=== PATIENT | male | born 1955 | race Caucasian/White ===

== ENCOUNTER 2017-09-12 14:05 | Inpatient (IN) | payer SELFPAY ==
[2017-09-12] VITALS (7 sets, daily range): BP systolic 124–161; BP diastolic 67–94; PULSE 85–99; RESP 20–22; TEMP 98–98.7; O2SAT 92–96
[~2017-09-12] VITALS: Ht 180.3 cm; Wt 122.7 kg
--- NOTE | 2017-09-12 14:17 | PD ---
Physical Exam Date Seen by Provider: Sep 12, 2017 Time Seen by Provider: 14:14 Narrative 61-year-old white male presents to emergency para complaints of dyspnea. He states that he's had a history of asthma as a child. He does use an albuterol inhaler. He's had increasing dyspnea on exertion, orthopnea over the last several months but much more so in the last few weeks. Patient states the symptoms were so severe today he could not continue to work and came into the ER for evaluation and treatment. Positive cough with clear sputum. No fever or chills. No nausea vomiting. Symptoms are moderate. Exacerbated by activity. Some relief with remaining still and using his inhaler. Vital signs reviewed. Pt. waiting for bed placement. Data Data Last Documented VS Vital Signs Date Time Temp Pulse Resp B/P (MAP) Pulse Ox O2 Delivery O2 Flow Rate FiO2 09/12/17 14:07 98.7 90 22 124/76 (92) 94 MDM Medical Record Reviewed: No Supervised Visit with ANNIE: No (A left-sided breather right sided breather) Toby Celeste Sep 12, 2017 14:17
[2017-09-12] MEDS ORDERED: methylPREDNISolone SOD SUCC 125 MG/2 ML VIAL IV PUSH ONE ×2 (14:30)
[2017-09-12] MEDS ORDERED: SODIUM CHLORIDE 0.9% FLUSH 10 ML FLUSH IVF PRN ×2 (14:30)
--- NOTE | 2017-09-12 14:46 | PD ---
HPI Chief Complaint: Respiratory Symptoms Time Seen by Provider: 14:23 Travel History International Travel<30 days: No Contact w/Intl Traveler<30days: No Traveled to known affect area: No History of Present Illness HPI 61-year-old male presents to the emergency room for evaluation of shortness of breath. He has had increasing shortness of breath over the past several months. States it was so severe today that he had to come to the ER. He has had shortness of breath with exertion and orthopnea. Patient reports recent weight gain. Denies chest pain, nausea, or vomiting. Denies history of heart or lung disease. Patient has not been to a primary care physician in a very long time and denies any diagnosis of COPD or CHF. He smokes one pack per day, down from 2. He had asthma as a child but denies any recent asthma exacerbation. He uses albuterol inhaler as needed. He is on aspirin but denies any other daily medications. PFSH Social History Tobacco Use: Yes Allergies-Medications (Allergen,Severity, Reaction): Coded Allergies: penicillin V (Verified Allergy, Unknown, 09/12/17) Review of Systems Except as stated in HPI: all other systems reviewed are Neg Physical Exam Narrative GENERAL: Well-developed, well-nourished male in no acute distress. Afebrile. Ambulatory. SKIN: Focused skin assessment warm/dry. HEAD: Atraumatic. Normocephalic. EYES: Pupils equal and round. No scleral icterus. No injection or drainage. NECK: Trachea midline. No JVD. CARDIOVASCULAR: Regular rate and rhythm. No murmur appreciated. RESPIRATORY: No accessory muscle use. Bilateral expiratory wheezing. Distant lung sounds. MUSCULOSKELETAL: No obvious deformities. No clubbing. No cyanosis. Bilateral 1 + pitting edema in lower extremities. NEUROLOGICAL: Awake and alert. No obvious cranial nerve deficits. Motor grossly within normal limits. Normal speech. PSYCHIATRIC: Appropriate mood and affect; insight and judgment normal. Data Data Last Documented VS Vital Signs Date Time Temp Pulse Resp B/P (MAP) Pulse Ox O2 Delivery O2 Flow Rate FiO2 09/12/17 16:02 96 22 161/94 (116) 96 Nasal Cannula 2.00 09/12/17 14:07 98.7 Orders Orders Complete Blood Count With Diff (09/12/17 14:29) Comprehensive Metabolic Panel (09/12/17 14:29) B-Type Natriuretic Peptide (09/12/17 14:29) Act Partial Throm Time (Ptt) (09/12/17 14:29) Prothrombin Time / Inr (Pt) (09/12/17 14:29) Ckmb (Isoenzyme) Profile (09/12/17 14:29) Troponin I (09/12/17 14:29) Iv Access Insert/Monitor (09/12/17 14:29) Electrocardiogram (09/12/17 14:29) Ecg Monitoring (09/12/17 14:29) Oximetry (09/12/17 14:29) Oxygen Administration (09/12/17 14:29) Chest, Pa & Lat (09/12/17 14:29) Sodium Chloride 0.9% Flush (Ns Flush) (09/12/17 14:30) Methylprednisolone So Succ Inj (Solumedr (09/12/17 14:30) Albuterol-Ipratropium Neb (Duoneb Neb) (09/12/17 14:30) Furosemide Inj (Lasix Inj) (09/12/17 15:00) Aspirin (Aspirin) (09/12/17 16:00) CKMB (09/12/17 14:59) CKMB% (09/12/17 14:59) Nitroglycerin 2% Oint (Nitroglycerin 2% (09/12/17 16:00) Morphine Inj (Morphine Inj) (09/12/17 16:00) Ondansetron Inj (Zofran Inj) (09/12/17 16:00) Place In Observation (09/12/17 ) Vital Signs (Adult) Q4H (09/12/17 16:33) Activity Oob With Assistance (09/12/17 16:33) Diet Regular Basic (09/12/17 Dinner) Sodium Chloride 0.9% Flush (Ns Flush) (09/12/17 16:45) Sodium Chloride 0.9% Flush (Ns Flush) (09/12/17 21:00) Acetaminophen (Tylenol) (09/12/17 16:45) Ondansetron Inj (Zofran Inj) (09/12/17 16:45) Basic Metabolic Panel (Bmp) (09/13/17 06:00) Complete Blood Count With Diff (09/13/17 06:00) Resp Oxygen Yunior C Titrat 1-4 L (09/12/17 ) Scd Bilateral/Knee High OFELIA.BID (09/12/17 16:33) Naloxone Inj (Narcan Inj) (09/12/17 16:45) Magnesium Hydroxide Liq (Milk Of Magnesi (09/12/17 16:45) Sennosides (Senokot) (09/12/17 16:45) Bisacodyl Supp (Dulcolax Supp) (09/12/17 16:45) Lactulose Liq (Lactulose Liq) (09/12/17 16:45) Albuterol-Ipratropium Neb (Duoneb Neb) (09/12/17 16:45) Admit Order (Ed Use Only) (09/12/17 ) Medicare Nurse / Telemetry OFELIA.Q8H (09/12/17 16:33) Vital Signs (Adult) Q4H (09/12/17 16:33) Diet Heart Healthy (09/12/17 Dinner) Activity Oob With Assistance (09/12/17 16:33) Notify Dr: Other (09/12/17 16:33) Labs Laboratory Tests Test 09/12/17 14:59 White Blood Count 9.2 TH/MM3 Red Blood Count 5.29 MIL/MM3 Hemoglobin 16.3 GM/DL Hematocrit 47.7 % Mean Corpuscular Volume 90.1 FL Mean Corpuscular Hemoglobin 30.8 PG Mean Corpuscular Hemoglobin Concent 34.1 % Red Cell Distribution Width 13.8 % Platelet Count 235 TH/MM3 Mean Platelet Volume 7.6 FL Neutrophils (%) (Auto) 62.9 % Lymphocytes (%) (Auto) 21.2 % Monocytes (%) (Auto) 9.4 % Eosinophils (%) (Auto) 5.8 % Basophils (%) (Auto) 0.7 % Neutrophils # (Auto) 5.8 TH/MM3 Lymphocytes # (Auto) 1.9 TH/MM3 Monocytes # (Auto) 0.9 TH/MM3 Eosinophils # (Auto) 0.5 TH/MM3 Basophils # (Auto) 0.1 TH/MM3 CBC Comment DIFF FINAL Differential Comment Prothrombin Time 10.4 SEC Prothromb Time International Ratio 0.9 RATIO Activated Partial Thromboplast Time 26.1 SEC Blood Urea Nitrogen 23 MG/DL Creatinine 1.01 MG/DL Random Glucose 94 MG/DL Total Protein 8.0 GM/DL Albumin 3.9 GM/DL Calcium Level 8.4 MG/DL Alkaline Phosphatase 102 U/L Aspartate Amino Transf (AST/SGOT) 30 U/L Alanine Aminotransferase (ALT/SGPT) 56 U/L Total Bilirubin 0.5 MG/DL Sodium Level 138 MEQ/L Potassium Level 3.9 MEQ/L Chloride Level 105 MEQ/L Carbon Dioxide Level 28.1 MEQ/L Anion Gap 5 MEQ/L Estimat Glomerular Filtration Rate 75 ML/MIN Total Creatine Kinase 257 U/L Creatine Kinase MB 2.9 NG/ML Troponin I 0.06 NG/ML B-Type Natriuretic Peptide 181 PG/ML MDM Medical Decision Making Medical Screen Exam Complete: Yes Emergency Medical Condition: Yes Medical Record Reviewed: Yes Differential Diagnosis CHF, COPD exacerbation, asthma exacerbation Narrative Course 61-year-old male presents to the emergency room for evaluation of shortness of breath for the past several months that has been increasingly worsening. Shortness of breath is worse with exertion and when lying down. Patient denies history of COPD or CHF but has not been to a doctor in a very long time. He smokes one pack per day. His albuterol inhaler has not been proven symptoms. Physical exam reveals bilateral expiratory wheezing. He has 1+ edema to bilateral lower extremities. 94% on room air. Patient has audible wheezing and mild increased work of breathing. IV access established and basic labs obtained. Patient placed on heart monitor. EKG shows sinus rhythm with rate 84 bpm, no ST changes, signed off by my attending physician. CBC and CMP are essentially unremarkable. Troponin is elevated at 0.06. BNP is mildly elevated at 181. His chest x-ray shows moderate congestive failure. Patient was given 3 duo nebs and 125 mg Solu-Medrol and reports improvement in symptoms. Lung sounds are slightly improved. He was also given 40 mg IV Lasix , aspirin, Zofran, morphine, and nitroglycerin. Patient declined morphine. He will be admitted for new onset CHF and elevated troponin. Physician Communication Physician Communication I spoke to Dr. Morales who agrees to admit this patient to his service. Diagnosis Primary Impression: CHF (congestive heart failure) Qualified Codes: I50.9 - Heart failure, unspecified Additional Impression: Elevated troponin Admitting Information Admitting Physician Requests: Admit Condition: Stable Farida Monge Sep 12, 2017 14:46
[2017-09-12] MEDS: RESP: ALBUTEROL 2.5 MG/IPRATROPIUM 0.5 MG NEB (SCH) INH ×4 (14:48→14:49)
--- NOTE | 2017-09-12 14:56 | PD ---
Physical Exam Date Seen by Provider: Sep 12, 2017 Narrative Patient presents with dyspnea associated with LINARES and orthopnea Data Data Last Documented VS Vital Signs Date Time Temp Pulse Resp B/P (MAP) Pulse Ox O2 Delivery O2 Flow Rate FiO2 09/12/17 14:07 98.7 90 22 124/76 (92) 94 Orders Orders Complete Blood Count With Diff (09/12/17 14:29) Comprehensive Metabolic Panel (09/12/17 14:29) B-Type Natriuretic Peptide (09/12/17 14:29) Act Partial Throm Time (Ptt) (09/12/17 14:29) Prothrombin Time / Inr (Pt) (09/12/17 14:29) Ckmb (Isoenzyme) Profile (09/12/17 14:29) Troponin I (09/12/17 14:29) Iv Access Insert/Monitor (09/12/17 14:29) Electrocardiogram (09/12/17 14:29) Ecg Monitoring (09/12/17 14:29) Oximetry (09/12/17 14:29) Oxygen Administration (09/12/17 14:29) Chest, Pa & Lat (09/12/17 14:29) Sodium Chloride 0.9% Flush (Ns Flush) (09/12/17 14:30) Methylprednisolone So Succ Inj (Solumedr (09/12/17 14:30) Albuterol-Ipratropium Neb (Duoneb Neb) (09/12/17 14:30) MDM Supervised Visit with ANNIE: Yes Narrative Course I, Dr. Duke, have reviewed the advance practice practitioner's documentation and am in agreement, met with the patient face to face, made the diagnosis, and the medical decision making was done by me. *My assessment and Findings: This patient is being worked up for probable pulmonary edema. He is being treated with nebs in the meantime. He does not appear to be in any respiratory distress while on nebulizer treatment. Please see Farida Monge PA-C's note for results of laboratory and radiographic evaluation, ED course, final diagnosis and disposition Condition: Stable Shu Duke MD Sep 12, 2017 14:56
[2017-09-12] MEDS ORDERED: FUROSEMIDE 40 MG/4 ML VIAL IV PUSH ONE ×2 (15:00)
--- NOTE | 2017-09-12 15:03 | RADRPT ---
EXAM DATE/TIME: 09/12/2017 14:43 [facility] COMPARISON: No previous studies available for comparison. INDICATIONS : Shortness of breath. MEDICAL HISTORY : None. SURGICAL HISTORY : None. ENCOUNTER: Initial ACUITY: 1 day PAIN SCORE: 0/10 LOCATION: Bilateral chest FINDINGS: There is moderate interstitial edema and cardiomegaly consistent with congestive failure. There is n o pneumothorax or pleural effusion. The portion of the bony skeleton visualized is unremarkable. CONCLUSION: Moderate congestive failure. Ovidio Lilly MD FACR on September 12, 2017 at 15:00 Board Certified Radiologist. This report was verified electronically.
[2017-09-12 15:26] LABS: AUTOMATED NEUTROPHIL # 5.8 TH/MM3 (1.8-7.7); BASOPHIL # 0.1 TH/MM3 (0-0.2); BASOPHIL % 0.7 % (0.0-2.0); EOSINOPHIL # 0.5 TH/MM3 (0-0.4); EOSINOPHIL % 5.8 % (0.0-4.0); HEMATOCRIT 47.7 % (39.0-51.0); HEMOGLOBIN 16.3 GM/DL (13.0-17.0); LYMPH % 21.2 % (9.0-44.0); LYMPHOCYTE # 1.9 TH/MM3 (1.0-4.8); MEAN CELL VOLUME 90.1 FL (80.0-100.0); MEAN CORPUSCULAR HEMOGLOBIN 30.8 PG (27.0-34.0); MEAN CORPUSCULAR HGB CONC 34.1 % (32.0-36.0); MEAN PLATELET VOLUME 7.6 FL (7.0-11.0); MONO % 9.4 % (0.0-8.0); MONOCYTE # 0.9 TH/MM3 (0-0.9); NEUT % 62.9 % (16.0-70.0); PLATELET COUNT 235 TH/MM3 (150-450); RED BLOOD COUNT 5.29 MIL/MM3 (4.50-5.90); RED CELL DISTRIBUTION WIDTH 13.8 % (11.6-17.2); WHITE BLOOD COUNT 9.2 TH/MM3 (4.0-11.0)
[2017-09-12 15:46] LABS: INTERNATIONAL NORMALIZED RATIO 0.9 RATIO; PROTHROMBIN TIME - PATIENT 10.4 SEC (9.8-11.6)
[2017-09-12 15:48] LABS: ALBUMIN 3.9 GM/DL (3.4-5.0); ALT (GPT) 56 U/L (12-78); AST (GOT) 30 U/L (15-37); BICARBONATE 28.1 MEQ/L (21.0-32.0); BLOOD UREA NITROGEN 23 MG/DL (7-18); CALCIUM 8.4 MG/DL (8.5-10.1); CHLORIDE 105 MEQ/L (98-107); CREATININE 1.01 MG/DL (0.60-1.30); GLOMERULAR FILTRATION RATE 75 ML/MIN (>89); GLUCOSE,RANDOM 94 MG/DL (74-106); SODIUM (NA) 138 MEQ/L (136-145)
[2017-09-12 15:52] LABS: ALKALINE PHOSPHATASE 102 U/L (45-117); TOTAL BILIRUBIN ADULT 0.5 MG/DL (0.2-1.0); TROPONIN I 0.06 NG/ML (0.02-0.05)
[2017-09-12] MEDS ORDERED: ONDANSETRON HCL 4 MG/2 ML VIAL IV PUSH ONE ×2 (16:00)
[2017-09-12] MEDS ORDERED: NITROGLYCERIN 2% OINT 1 GM PACKET TOPICAL ONE ×2 (16:00)
[2017-09-12] MEDS ORDERED: ASPIRIN 325 MG TAB PO ONE ×2 (16:00)
[2017-09-12] MEDS ORDERED: MORPHINE SULFATE 4 MG/ML INJ IV PUSH ONE ×2 (16:00)
[2017-09-12] MEDS ORDERED: ACETAMINOPHEN 325 MG TAB PO PRN ×2 (16:45)
[2017-09-12] MEDS ORDERED: LACTULOSE SYRUP 20 GM/30 ML CUP PO PRN ×2 (16:45)
[2017-09-12] MEDS ORDERED: BISACODYL 10 MG SUPP RECTAL PRN ×2 (16:45)
[2017-09-12] MEDS ORDERED: SENNOSIDES 8.6 MG TAB PO PRN ×2 (16:45)
[2017-09-12] MEDS ORDERED: RESP: ALBUTEROL 2.5 MG/IPRATROPIUM 0.5 MG NEB (PRN) NEB ×2 (16:45)
[2017-09-12] MEDS ORDERED: NALOXONE HCL 0.4 MG/ML AMP IV PUSH PRN ×2 (16:45)
[2017-09-12] MEDS ORDERED: MAGNESIUM HYDROXIDE SUSP 30 ML CUP PO PRN ×2 (16:45)
[2017-09-12] MEDS ORDERED: ONDANSETRON HCL 4 MG/2 ML VIAL IVP PRN ×2 (16:45)
[2017-09-12] MEDS ORDERED: RESP: ALBUTEROL 2.5 MG/3 ML NEB (PRN) NEB ×2 (17:30)
--- NOTE | 2017-09-12 18:20 | HHI.HP ---
[facility]ician No Primary Care Physician Admission Diagnosis new onset CHF, elevated troponin Diagnoses: (1) Dyspnea (2) Elevated troponin Chief Complaint: Dyspnea Travel History International Travel<30 Days: No Contact w/Intl Traveler <30 Da: No Traveled to Known Affected Are: No History of Present Illness The patient is a 61-year-old male who reports no known chronic medical problems , although he has not seen a physician in many years. He presented to the emergency department with worsening shortness of breath. This has really been going on for the last couple years, but worsened significantly over the last 1- 2 days. He describes weight gain over the past 8 months. He reports nocturia 3 every night. He had an episode of chest pain in the ER, which occurred with movement of his left arm. The pain is reproducible. Otherwise no chest pain. He states that his shortness of breath has improved somewhat since arriving in the ER. He has a history of chronic tobacco abuse and recently cut down from 2 packs per day to one pack per day. He also reports a history of childhood asthma. Denies other lung or cardiac problems. Review of Systems Constitutional: DENIES: Fever, Chills, Night Sweats Eyes: DENIES: Blurred vision, Vision loss Ears, nose, mouth, throat: DENIES: Hearing loss Respiratory: COMPLAINS OF: Shortness of breath, DENIES: Cough, Wheezing, Sputum production Cardiovascular: COMPLAINS OF: Chest pain (as described in history of present illness), Dyspnea on Exertion, Lower Extremity Edema, DENIES: Palpitations Gastrointestinal: DENIES: Abdominal pain, Constipation, Diarrhea, Nausea, Vomiting Genitourinary: COMPLAINS OF: Nocturia, DENIES: Urinary frequency, Urinary incontinence, Urgency, Hematuria, Dysuria Musculoskeletal: DENIES: Joint pain, Muscle aches Integumentary: DENIES: Pruritus, Rash Hematologic/lymphatic: DENIES: Bruising Neurologic: DENIES: Headache Past Family Social History Past Medical History Denies Past Surgical History Ankle surgery Knee surgery Tonsillectomy Reported Medications None Allergies: Coded Allergies: penicillin V (Verified Allergy, Unknown, 09/12/17) Family History The patient denies significant family medical history. Social History Smokes one pack per day, down from 2 packs per day. He states that he has smoked for many years. Denies alcohol use. No recent illicit drug use. Denies ever using IV drugs. Physical Exam Vital Signs Vital Signs Date Time Temp Pulse Resp B/P (MAP) Pulse Ox O2 Delivery O2 Flow Rate FiO2 09/12/17 17:34 85 21 146/74 (98) 94 Nasal Cannula 09/12/17 16:02 96 22 161/94 (116) 96 Nasal Cannula 2.00 09/12/17 14:45 95 Nasal Cannula 2.00 09/12/17 14:30 Room Air 09/12/17 14:07 98.7 90 22 124/76 (92) 94 Physical Exam GENERAL: Obese male in no acute distress. HEENT: Normocephalic, atraumatic. Pupils equal, round and reactive. Extraocular movements intact. No scleral icterus. No injection or drainage. Oropharynx is clear. Mucous membranes are moist. CARDIOVASCULAR: Tachycardic. RESPIRATORY: Diffuse wheeze. Bibasilar crackles. Breathing is non-labored. GASTROINTESTINAL: Abdomen soft, non-tender, nondistended. Obese. EXTREMITIES: 1+ bilateral lower extremity edema. No calf tenderness. PSYCH: Alert and oriented x 3. Laboratory Laboratory Tests Test 09/12/17 14:59 White Blood Count 9.2 Red Blood Count 5.29 Hemoglobin 16.3 Hematocrit 47.7 Mean Corpuscular Volume 90.1 Mean Corpuscular Hemoglobin 30.8 Mean Corpuscular Hemoglobin Concent 34.1 Red Cell Distribution Width 13.8 Platelet Count 235 Mean Platelet Volume 7.6 Neutrophils (%) (Auto) 62.9 Lymphocytes (%) (Auto) 21.2 Monocytes (%) (Auto) 9.4 Eosinophils (%) (Auto) 5.8 Basophils (%) (Auto) 0.7 Neutrophils # (Auto) 5.8 Lymphocytes # (Auto) 1.9 Monocytes # (Auto) 0.9 Eosinophils # (Auto) 0.5 Basophils # (Auto) 0.1 CBC Comment DIFF FINAL Differential Comment Prothrombin Time 10.4 Prothromb Time International Ratio 0.9 Activated Partial Thromboplast Time 26.1 Blood Urea Nitrogen 23 Creatinine 1.01 Random Glucose 94 Total Protein 8.0 Albumin 3.9 Calcium Level 8.4 Alkaline Phosphatase 102 Aspartate Amino Transf (AST/SGOT) 30 Alanine Aminotransferase (ALT/SGPT) 56 Total Bilirubin 0.5 Sodium Level 138 Potassium Level 3.9 Chloride Level 105 Carbon Dioxide Level 28.1 Anion Gap 5 Estimat Glomerular Filtration Rate 75 Total Creatine Kinase 257 Creatine Kinase MB 2.9 Troponin I 0.06 B-Type Natriuretic Peptide 181 Result Diagram: 09/12/17 1459 09/12/17 1459 Imaging Last Impressions Chest X-Ray 09/12/17 1429 Signed Impressions: Service Date/Time: Tuesday, September 12, 2017 14:43 - CONCLUSION: Moderate congestive failure. Ovidio Lilly MD FACR Caprini VTE Risk Assessment Caprini VTE Risk Assessment: Mod/High Risk (score >= 2) Caprini Risk Assessment Model Point Value = 1 Point Value = 2 Point Value = 3 Point Value = 5 Age 41-60 Minor surgery BMI > 25 kg/m2 Swollen legs Varicose veins or History of unexplained or recurrent spontaneous Oral contraceptives or hormone replacement Sepsis (< 1 month) Serious lung disease, including pneumonia (< 1 month) Abnormal pulmonary function Acute myocardial infarction Congestive heart failure (< 1 month) History of inflammatory bowel disease Medical patient at bed rest Age 61-74 Arthroscopic surgery Major open surgery (> 45 min) Laparoscopic surgery (> 45 min) Malignancy Confined to bed (> 72 hours) Immobilizing plaster cast Central venous access Age >= 75 History of VTE Family history of VTE Factor V Leiden Prothrombin [id number] Lupus anticoagulant Anticardiolipin antibodies Elevated serum homocysteine Heparin-induced thrombocytopenia Other congenital or acquired thrombophilia Stroke (< 1 month) Elective arthroplasty Hip, pelvis, or leg fracture Acute spinal cord injury (< 1 month) Prophylaxis Regimen Total Risk Factor Score Risk Level Prophylaxis Regimen 0-1 Low Early ambulation 2 Moderate Order ONE of the following: *Sequential Compression Device (SCD) *Heparin 5000 units SQ BID 3-4 Higher Order ONE of the following medications: *Heparin 5000 units SQ TID *Enoxaparin/Lovenox 40 mg SQ daily (WT < 150 kg, CrCl > 30 mL/min) *Enoxaparin/Lovenox 30 mg SQ daily (WT < 150 kg, CrCl > 10-29 mL/min) *Enoxaparin/Lovenox 30 mg SQ BID (WT < 150 kg, CrCl > 30 mL/min) AND/OR *Sequential Compression Device (SCD) 5 or more Highest Order ONE of the following medications: *Heparin 5000 units SQ TID (Preferred with Epidurals) *Enoxaparin/Lovenox 40 mg SQ daily (WT < 150 kg, CrCl > 30 mL/min) *Enoxaparin/Lovenox 30 mg SQ daily (WT < 150 kg, CrCl > 10-29 mL/min) *Enoxaparin/Lovenox 30 mg SQ BID (WT < 150 kg, CrCl > 30 mL/min) AND *Sequential Compression Device (SCD) Assessment and Plan Assessment and Plan 1. Dyspnea: Likely multifactorial. Suspect COPD and CHF. Check 2-D echocardiogram. Continue diuresis. Continue steroids, bronchodilators, supplemental oxygen. 2. Elevated troponin: Check serial cardiac enzymes. Consult cardiology. Monitor on cardiac telemetry. 3. DVT prophylaxis: Lovenox. Robert Llamas MD Sep 12, 2017 18:20
[2017-09-12] MEDS: POTASSIUM CHLORIDE 20 MEQ CONTROLLED RELEASE TAB PO SCH ×2 (19:05)
[2017-09-12] MEDS: RESP: ALBUTEROL 2.5 MG/IPRATROPIUM 0.5 MG NEB (SCH) NEB ×2 (19:55)
[2017-09-12] MEDS: methylPREDNISolone SOD SUCC 40 MG/1 ML VIAL IV PUSH SCH ×2 (20:46)
[2017-09-12] MEDS: ENOXAPARIN SODIUM 100 MG/ML SYRINGE SQ SCH ×2 (20:46)
[2017-09-12] MEDS: SODIUM CHLORIDE 0.9% FLUSH 10 ML FLUSH IV FLUSH SCH ×2 (20:46)
[2017-09-12] MEDS: NITROGLYCERIN 2% OINT 1 GM PACKET TOPICAL SCH ×2 (20:47)
[2017-09-12 22:45] LABS: TROPONIN I 0.03 NG/ML (0.02-0.05)
[2017-09-13] VITALS (9 sets, daily range): BP systolic 121–149; BP diastolic 59–75; PULSE 86–111; RESP 20; TEMP 97.5–98.4; O2SAT 91–98
[2017-09-13 03:40] LABS: AUTOMATED NEUTROPHIL # 7.6 TH/MM3 (1.8-7.7); BASOPHIL % 0.5 % (0.0-2.0); HEMATOCRIT 48.2 % (39.0-51.0); HEMOGLOBIN 15.9 GM/DL (13.0-17.0); LYMPH % 9.5 % (9.0-44.0); LYMPHOCYTE # 0.8 TH/MM3 (1.0-4.8); MEAN CORPUSCULAR HEMOGLOBIN 29.7 PG (27.0-34.0); MEAN PLATELET VOLUME 7.3 FL (7.0-11.0); MONO % 0.9 % (0.0-8.0); MONOCYTE # 0.1 TH/MM3 (0-0.9); NEUT % 89.1 % (16.0-70.0); PLATELET COUNT 254 TH/MM3 (150-450); RED BLOOD COUNT 5.36 MIL/MM3 (4.50-5.90); WHITE BLOOD COUNT 8.5 TH/MM3 (4.0-11.0)
[2017-09-13 04:10] LABS: BICARBONATE 27.6 MEQ/L (21.0-32.0); CALCIUM 8.5 MG/DL (8.5-10.1); CREATININE 1.21 MG/DL (0.60-1.30)
[2017-09-13 04:19] LABS: TROPONIN I 0.03 NG/ML (0.02-0.05)
[2017-09-13] MEDS: NITROGLYCERIN 2% OINT 1 GM PACKET TOPICAL SCH ×2 (05:34)
[2017-09-13] MEDS: methylPREDNISolone SOD SUCC 40 MG/1 ML VIAL IV PUSH SCH ×6 (05:34→20:36)
[2017-09-13] MEDS: SODIUM CHLORIDE 0.9% FLUSH 10 ML FLUSH IV FLUSH PRN ×2 (05:35)
[2017-09-13] MEDS: RESP: ALBUTEROL 2.5 MG/IPRATROPIUM 0.5 MG NEB (SCH) NEB ×8 (07:38→19:41)
--- NOTE | 2017-09-13 08:57 | MB ---
cc: STACI MARTINEZ MD DATE OF CONSULTATION 09/13/2017 REASON FOR CONSULTATION CHF. HISTORY OF PRESENT ILLNESS Mr. Whitmore is a 61-year-old man who does have a longstanding history of tobacco abuse, COPD, who presented with progressive shortness of breath. The patient reports that he has not been able to lie flat for several years. He has had recent progression of his shortness of breath and weight gain that precipitated his emergency room visit. The patient denied any chest pain to me. He is currently pain-free and he is feeling well enough that he is requesting discharge. PAST MEDICAL HISTORY Significant for tobacco use and COPD. He denies any cardiac problems. PAST SURGICAL HISTORY Inguinal hernia. ALLERGIES PENICILLIN. FAMILY HISTORY Negative for CAD. SOCIAL HISTORY The patient smokes one-pack a day and former two pack per day smoker. PHYSICAL EXAMINATION VITAL SIGNS: 97.8, 91, 20, 126/68. GENERAL: He is a morbidly obese man who is in no apparent distress. He is actively coughing up clear sputum. LUNGS: The lungs have wheezing throughout. ABDOMEN: Soft. EXTREMITIES: Free from edema. LAB VALUES Significant for a BUN of 25 and a creatinine of 1.2, up from 1.0 yesterday. His serial troponins are 0.06, 0.03, 0.03. BNP there is 181. EKG shows normal sinus rhythm. There are small inferior Q-waves, potentially consistent with old inferior NC, age indeterminate. IMPRESSION Elevated troponin - This marginally elevated troponin could be potentially consistent with ischemia or more likely CHF. The patient will be medically managed conservatively per his request. I did offer the gentleman cardiac catheterization or nuclear stress testing. He has declined both as he is not able to lie flat. He indicates that he has large inguinal hernia and has declined surgical procedures for this as well for the same reason. I did indicate to him that this is potentially life-threatening and he remains steadfast in his decision not to proceed. Thus at this point we will obtain an echocardiogram. Beta-blockers are felt contraindicated with his severe COPD. I am going to discontinue the diuretics as the patient appears a bit dry today with the elevated BUN/creatinine ratio. COPD - This will be managed by the primary team. Smoking - The patient was counseled to quit. Staci Martinez M.D. BAB/SSB 8:01 AM 8:36 AM
[2017-09-13] MEDS: POTASSIUM CHLORIDE 20 MEQ CONTROLLED RELEASE TAB PO SCH ×2 (09:00)
[2017-09-13] MEDS ORDERED: FUROSEMIDE 20 MG/2 ML VIAL IV PUSH SCH ×2 (09:00)
[2017-09-13] MEDS: ENOXAPARIN SODIUM 100 MG/ML SYRINGE SQ SCH ×4 (09:32→20:36)
[2017-09-13] MEDS: SODIUM CHLORIDE 0.9% FLUSH 10 ML FLUSH IV FLUSH SCH ×4 (09:32→20:36)
[2017-09-13] MEDS: ASPIRIN EC 81 MG TABEC PO SCH ×2 (09:33)
[2017-09-13] MEDS ORDERED: PNEUMOCOCCAL POLYVALENT INJ 25 MCG/0.5 ML SYR IM ONE ×2 (10:00)
--- NOTE | 2017-09-13 13:46 | HHI.PR ---
Subjective Remarks Pt states that sob is about the same, cannot lay flat. some chest discomfort w coughing but no pain at this time, no nausea or vomiting. Objective Vitals Vital Signs Date Time Temp Pulse Resp B/P (MAP) Pulse Ox O2 Delivery O2 Flow Rate FiO2 09/13/17 12:00 97.6 102 20 121/59 (79) 93 09/13/17 08:00 111 09/13/17 08:00 97.8 95 20 137/65 (89) 91 09/13/17 07:38 98 Nasal Cannula 3.00 09/13/17 07:15 Nasal Cannula 3.00 09/13/17 04:00 Nasal Cannula 3.00 09/13/17 04:00 97.8 91 20 126/68 (87) 92 09/13/17 00:00 97.7 86 20 132/67 (88) 95 09/13/17 00:00 Nasal Cannula 3.00 09/12/17 20:35 99 09/12/17 20:00 98.4 96 20 127/67 (87) 93 09/12/17 20:00 Nasal Cannula 3.00 09/12/17 19:56 96 Nasal Cannula 3.00 09/12/17 18:51 09/12/17 18:45 98.0 91 20 147/73 (97) 92 09/12/17 17:34 85 21 146/74 (98) 94 Nasal Cannula 09/12/17 16:02 96 22 161/94 (116) 96 Nasal Cannula 2.00 09/12/17 14:45 95 Nasal Cannula 2.00 09/12/17 14:30 Room Air 09/12/17 14:07 98.7 90 22 124/76 (92) 94 I/O 09/12/17 09/12/17 09/12/17 09/13/17 09/13/17 09/13/17 07:00 15:00 23:00 07:00 15:00 23:00 Intake Total 720 ml Output Total 800 ml Balance -80 ml Intake Oral 720 ml Output Urine Total 800 ml # Bowel Movements 1 Result Diagram: 09/13/1732909/13/17329 Imaging Last Impressions Chest X-Ray 09/12/17 2099 Signed Impressions: Service Date/Time: Tuesday, September 12, 2017 14:43 - CONCLUSION: Moderate congestive failure. Ovidio Lilly MD FACR Objective Remarks GENERAL: Obese male in no acute distress. HEENT: Extraocular movements intact. CARDIOVASCULAR: Tachycardic. RESPIRATORY: some exp wheeze throughout. no crackles that I could appreciate. Breathing is non-labored. GASTROINTESTINAL: Abdomen soft, non-tender, nondistended. Obese. EXTREMITIES: 1+ bilateral lower extremity edema. No calf tenderness. PSYCH: Alert and oriented x 3. A/P Problem List: (1) Dyspnea ICD Code: R06.00 - Dyspnea, unspecified (2) Elevated troponin ICD Code: R74.8 - Abnormal levels of other serum enzymes Status: Acute Assessment and Plan --Dyspnea: Likely multifactorial. Suspect COPD and CHF. 2-D echocardiogram pending. Cards stopped diuretics due to BUN/Cr ratio. --Elevated troponin: trop 0.06-->0.03-->0.03.Cardiology evaluated the patient and offered him a cardiac cath vs nuclear stress testing and he declined both as he is not able to lie flat. on ASA. check lipid profile. may need statin. --HTN: elevated on admission, now better controlled. avoid bb due to copd --COPD exacerbation: still wheezing on exam, continue duonebs, solu-medrol IV, will start taper tomorrow. supplemental oxygen as needed. --DVT prophylaxis: Lovenox. Discharge Planning re-evaluate in AM. awaiting ECHO report. continue to taper steroids. Maribeth Rodriguez MD Sep 13, 2017 13:46
--- NOTE | 2017-09-13 15:43 | ECHRPT ---
Indication: HEART FAILURE CONCLUSIONS Mildly dilated left ventricle. Wall thickness is measured at the upper limits of normal. The left ventricular systolic function is normal with an estimated ejection fraction in the range of 55-60%. [id number] mitral valve regurgitation. BP: 126 / 68 HR: 91 Rhythm: Sinus MEASUREMENTS (Male / Female) Normal Values Technical Quality:Fair 2D ECHO LV Diastolic Diameter PLAX 6.3 cm 4.2 - 5.9 / 3.9 - 5.3 cm LV Systolic Diameter PLAX 4.8 cm IVS Diastolic Thickness 1.0 cm 0.6 - 1.0 / 0.6 - 0.9 cm LVPW Diastolic Thickness 1.0 cm 0.6 - 1.0 / 0.6 - 0.9 cm LV Relative Wall Thickness 0.3 LVOT Diameter 2.1 cm Aortic Root Diameter 3.1 cm LA Systolic Diameter LX 4.3 cm 3.0 - 4.0 / 2.7 - 3.8 cm M-MODE AV Cusp Separation MM 2.1 cm DOPPLER AV Peak Velocity 138.0 cm/s AV Peak Gradient 7.6 mmHg AV Mean Gradient 4.0 mmHg AV Velocity Time Integral 23.5 cm LVOT Peak Velocity 106.0 cm/s LVOT Peak Gradient 4.5 mmHg LVOT Velocity Time Integral 18.5 cm LVOT Cardiac Index 2337.6 cm/minm AV Area Cont Eq vti 2.7 cm AV Area Cont Eq pk 2.7 cm Mitral E Point Velocity 83.9 cm/s Mitral A Point Velocity 134.0 cm/s Mitral E to A Ratio 0.6 LV E' Lateral Velocity 5.8 cm/s Mitral E to LV E' Lateral Ratio 14.5 LV E' Septal Velocity 8.0 cm/s Mitral E to LV E' Septal Ratio 10.5 Right Atrial Pressure 10.0 mmHg PV Peak Velocity 82.7 cm/s PV Peak Gradient 2.7 mmHg FINDINGS LEFT VENTRICLE Mildly dilated left ventricle. Wall thickness is measured at the upper limits of normal. The left ventricular systolic function is normal with an estimated ejection fraction in the range of 55-60%. RIGHT VENTRICLE Normal right ventricular size and systolic function. LEFT ATRIUM The left atrial size is normal. RIGHT ATRIUM The right atrial size is normal. ATRIAL SEPTUM Normal atrial septal thickness without atrial level shunting by limited color doppler interrogation. AORTA The aortic root and proximal ascending aorta are normal in size on limited imaging. MITRAL VALVE Diigf-hb-ukdo mitral valve regurgitation. AORTIC VALVE Trileaflet aortic valve. No aortic valve stenosis or regurgitation. TRICUSPID VALVE Structurally normal tricuspid valve. No tricuspid valve stenosis or regurgitation. PULMONARY VALVE The pulmonary valve is not well visualized. VESSELS The inferior vena cava is normal in size. PERICARDIUM No pericardial effusion. Mary Kate Ernandez MD, FACC (Electronically Signed) Final Date:13 September 2017 15:42
--- NOTE | 2017-09-13 17:23 | EKG ---
Date Performed: 09/13/2017 Time Performed: 04:16:14 PTAGE: 61 years EKG: Sinus rhythm Prolonged QT interval Severe right axis deviation Inferior infarct - age undetermined Possible later al infarct - age undetermined Compared to prior tracing no significant change Abnormal ECG PREVIOUS TRACING : 09/12/2017 20.12 DOCTOR: Mary Kate Ernandez Interpretating Date/Time 09/13/2017 17:21:48
--- NOTE | 2017-09-13 17:23 | EKG ---
Date Performed: 09/12/2017 Time Performed: 20:12:52 PTAGE: 61 years EKG: Sinus rhythm POSSIBLE LEFT ATRIAL ENLARGEMENT LATERAL MYOCARDIAL INFARCTION , OF INDETERMINATE AGE INFERIOR MYOCA RDIAL INFARCTION , PROBABLY OLD WITH POSTERIOR EXTENSION Compared to prior tracing no significant kailey nge ABNORMAL ECG PREVIOUS TRACING : 09/12/2017 15.50 DOCTOR: Mary Kate Ernandez Interpretating Date/Time 09/13/2017 17:21:31
--- NOTE | 2017-09-13 21:24 | EKG ---
Date Performed: 09/12/2017 Time Performed: 15:50:34 PTAGE: 61 years EKG: Sinus rhythm BORDERLINE RIGHT AXIS DEVIATION LOW QRS VOLTAGE IN EXTREMITY LEADS NO PREVIOUS TRACING DOCTOR: Augustine Drew Interpretating Date/Time 09/13/2017 21:23:53
[2017-09-14] VITALS (11 sets, daily range): BP systolic 134–147; BP diastolic 72–85; PULSE 95–120; RESP 18–20; TEMP 97.2–98.1; O2SAT 92–94
[2017-09-14] MEDS: SODIUM CHLORIDE 0.9% FLUSH 10 ML FLUSH IV FLUSH PRN ×2 (05:22)
[2017-09-14] MEDS: methylPREDNISolone SOD SUCC 40 MG/1 ML VIAL IV PUSH SCH ×6 (05:22→22:05)
--- NOTE | 2017-09-14 07:25 | PD.CARD.PN ---
Subjective Subjective Remarks Pt reports little improvement on breathing Objective Medications Current Medications Medications (Trade) Dose Ordered Sig/Jagdish Route Start Time Stop Time Status Last Admin (NS Flush) 2 ml UNSCH PRN IV FLUSH 09/12/17 16:45 09/14/17 05:22 (NS Flush) 2 ml BID IV FLUSH 09/12/17 21:00 09/13/17 20:36 (Tylenol) 650 mg Q4H PRN PO 09/12/17 16:45 09/12/17 20:49 (Zofran Inj) 4 mg Q6H PRN IVP 09/12/17 16:45 (Narcan Inj) 0.4 mg UNSCH PRN IV PUSH 09/12/17 16:45 (Milk Of Magnesia Liq) 30 ml Q12H PRN PO 09/12/17 16:45 (Senokot) 17.2 mg Q12H PRN PO 09/12/17 16:45 (Dulcolax Supp) 10 mg DAILY PRN RECTAL 09/12/17 16:45 (Lactulose Liq) 30 ml DAILY PRN PO 09/12/17 16:45 (Duoneb Neb) 1 ampule QID NEB NEB 09/12/17 20:00 09/13/17 19:41 (Ecotrin Ec) 81 mg DAILY PO 09/13/17 09:00 09/13/17 09:33 (Albuterol Neb) 2.5 mg Q2HR NEB PRN NEB 09/12/17 17:30 09/13/17 05:24 (SoluMEDROL INJ) 40 mg Q8HR IV PUSH 09/12/17 22:00 09/14/17 05:22 (KCl) 20 meq DAILY PO 09/12/17 18:15 09/13/17 09:00 (Lovenox Inj) 100 mg Q12H SQ 09/12/17 20:00 09/13/17 20:36 Vital Signs / I&O Vital Signs Date Time Temp Pulse Resp B/P (MAP) Pulse Ox O2 Delivery O2 Flow Rate FiO2 09/14/17 04:00 Nasal Cannula 2.00 09/14/17 04:00 97.6 120 20 137/85 (102) 92 09/14/17 00:00 98.1 103 20 138/79 (98) 92 09/14/17 00:00 Nasal Cannula 2.00 09/13/17 20:05 103 09/13/17 20:00 98.4 108 20 149/73 (98) 95 09/13/17 20:00 Nasal Cannula 2.00 09/13/17 19:40 92 Nasal Cannula 3.00 09/13/17 16:40 97.5 99 20 139/75 (96) 09/13/17 12:00 97.6 102 20 121/59 (79) 93 09/13/17 08:00 111 09/13/17 08:00 97.8 95 20 137/65 (89) 91 09/13/17 07:38 98 Nasal Cannula 3.00 I/O 09/13/17 09/13/17 09/13/17 09/14/17 09/14/17 09/14/17 07:00 15:00 23:00 07:00 15:00 23:00 Intake Total 720 ml 930 ml 480 ml Output Total 800 ml 300 ml Balance -80 ml 930 ml 180 ml Intake Oral 720 ml 930 ml 480 ml Output Urine Total 800 ml 300 ml # Voids 3 # Bowel Movements 1 1 Physical Exam GENERAL: Well developed, well nourished. No acute distress. HEENT: Jugular venous pressure is normal. CHEST: Lungs wheeze to auscultation bilaterally. Unlabored respiratory effort. CARDIAC: Regular rate and rhythm without S3, S4, or murmur. ABDOMEN: Soft, nontender, no hepatosplenomegaly. Bowel sounds present. EXTREMITIES: No clubbing, cyanosis, or edema. Imaging Last 72 hours Impressions Chest X-Ray 09/12/17 1429 Signed Impressions: Service Date/Time: Tuesday, September 12, 2017 14:43 - CONCLUSION: Moderate congestive failure. Ovidio Lilly MD FACR Assessment and Plan Problem List: (1) CHF (congestive heart failure) ICD Codes: I50.9 - Heart failure, unspecified Status: Acute Plan: ECHO with normal EF -may have had some right heart failure from COPD -BB contraindicated with COPD (2) Elevated troponin ICD Codes: R74.8 - Abnormal levels of other serum enzymes Status: Acute Plan: normal EF; ischemia vs secondary to COPD/hypoxia, CHF -declines ischemia work up -available PRN (3) COPD (chronic obstructive pulmonary disease) ICD Codes: J44.9 - Chronic obstructive pulmonary disease, unspecified (4) Dyspnea ICD Codes: R06.00 - Dyspnea, unspecified Problem Qualifiers (1) CHF (congestive heart failure): Qualified Codes: I50.9 - Heart failure, unspecified Mary Kate Ernandez MD Sep 14, 2017 07:25
[2017-09-14] MEDS: RESP: ALBUTEROL 2.5 MG/IPRATROPIUM 0.5 MG NEB (SCH) NEB ×8 (08:03→19:37)
[2017-09-14 08:21] LABS: CHOLESTEROL/ HDL RATIO 4.47 RATIO; HDL CHOLESTEROL 64.4 MG/DL (40.0-60.0)
[2017-09-14] MEDS: ASPIRIN EC 81 MG TABEC PO SCH ×2 (08:52)
[2017-09-14] MEDS: POTASSIUM CHLORIDE 20 MEQ CONTROLLED RELEASE TAB PO SCH ×2 (08:52)
[2017-09-14] MEDS: ENOXAPARIN SODIUM 100 MG/ML SYRINGE SQ SCH ×4 (09:04→22:05)
[2017-09-14] MEDS: SODIUM CHLORIDE 0.9% FLUSH 10 ML FLUSH IV FLUSH SCH ×4 (09:05→22:06)
--- NOTE | 2017-09-14 14:54 | HHI.PR ---
Subjective Remarks Pt states SOB is about the same, does get some relief w breathing treatments. no CP/n/v doesn't have a PCP w whom he follows still smoking 1ppd (states he cut back) Objective Vitals Vital Signs Date Time Temp Pulse Resp B/P (MAP) Pulse Ox O2 Delivery O2 Flow Rate FiO2 09/14/17 12:00 97.4 95 18 134/72 (92) 92 09/14/17 08:05 93 Nasal Cannula 2.00 09/14/17 08:00 100 09/14/17 08:00 Nasal Cannula 2.00 09/14/17 08:00 97.4 97 18 142/78 (99) 93 09/14/17 04:00 Nasal Cannula 2.00 09/14/17 04:00 97.6 120 20 137/85 (102) 92 09/14/17 00:00 98.1 103 20 138/79 (98) 92 09/14/17 00:00 Nasal Cannula 2.00 09/13/17 20:05 103 09/13/17 20:00 98.4 108 20 149/73 (98) 95 09/13/17 20:00 Nasal Cannula 2.00 09/13/17 19:40 92 Nasal Cannula 3.00 09/13/17 16:40 97.5 99 20 139/75 (96) I/O 09/13/17 09/13/17 09/13/17 09/14/17 09/14/17 09/14/17 07:00 15:00 23:00 07:00 15:00 23:00 Intake Total 720 ml 930 ml 480 ml Output Total 800 ml 300 ml Balance -80 ml 930 ml 180 ml Intake Oral 720 ml 930 ml 480 ml Output Urine Total 800 ml 300 ml # Voids 3 # Bowel Movements 1 1 Result Diagram: 09/13/17 03309/13/17 033 Imaging Last Impressions Chest X-Ray 09/12/17 142 Signed Impressions: Service Date/Time: Tuesday, September 12, 2017 14:43 - CONCLUSION: Moderate congestive failure. Ovidio Lilly MD FACR Objective Remarks GENERAL: Obese male in no acute distress. HEENT: Extraocular movements intact. CARDIOVASCULAR: mildly tachy no murmurs RESPIRATORY: some exp wheeze throughout. no crackles that I could appreciate. Breathing is non-labored. GASTROINTESTINAL: Abdomen soft, non-tender, nondistended. Obese. EXTREMITIES: 1+ bilateral lower extremity edema. No calf tenderness. PSYCH: Alert and oriented x 3. A/P Problem List: (1) Dyspnea ICD Code: R06.00 - Dyspnea, unspecified (2) Elevated troponin ICD Code: R74.8 - Abnormal levels of other serum enzymes Status: Acute Assessment and Plan --Dyspnea: Likely multifactorial. Suspect COPD and possible right sided heart failure from COPD. 2-D echocardiogram shows EF 55-60%. Cards stopped diuretics due to BUN/Cr ratio. Pt refusing ischemic work-up --Elevated troponin: trop 0.06-->0.03-->0.03.Cardiology evaluated the patient and offered him a cardiac cath vs nuclear stress testing and he declined both as he is not able to lie flat. on ASA. LDL 190, HDL64.4 and TG168. LFTs reviewed and wnl. Started on pravastatin 40mg qhs. --HTN: elevated on admission, now better controlled. avoid bb due to copd --COPD exacerbation: still wheezing on exam, continue duonebs, solu-medrol IV, consider tapering tomorrow. supplemental oxygen as needed. will place pulm consult as pt not improving much. walk test ordered. --DVT prophylaxis: Lovenox. Discharge Planning re-evaluate in AM. walk test ordered. pulm consult. continue to taper steroids. Pt refusing ischemic work-up Maribeth Rodriguez MD Sep 14, 2017 14:54
[2017-09-14] MEDS ORDERED: IOHEXOL 350 MG/ML 10 ML VIAL (for RAD DIAG) IVCONTRAST ONE ×2 (19:07)
--- NOTE | 2017-09-14 19:17 | RADRPT ---
EXAM DATE/TIME: 09/14/2017 19:04 [facility] COMPARISON: CHEST PA & LAT, September 12, 2017, 14:43. INDICATIONS : Shortness of breath. Abnormal chest x-ray demonstrating pulmonary opacities.. IV CONTRAST: 80 cc Omnipaque 350 (iohexol) IV RADIATION DOSE: 23.47 CTDIvol (mGy) MEDICAL HISTORY : Asthma SURGICAL HISTORY : 2 teeth extracted. ENCOUNTER: Initial ACUITY: 1 day PAIN SCALE: 5/10 LOCATION: chest TECHNIQUE: Volumetric scanning of the chest was performed using a pulmonary embolism protocol MIP images were re constructed. Using automated exposure control and adjustment of the mA and/or kV according to patien t size, radiation dose was kept as low as reasonably achievable to obtain optimal diagnostic quality images. DICOM format image data is available electronically for review and comparison. Follow-up recommendations for detected pulmonary nodules are based at a minimum on nodule size and pa tient risk factors according to Fleischner Society Guidelines. FINDINGS: PULMONARY ARTERIES: No filling defects are seen in the pulmonary arteries through the segmental level. LUNGS: There is no pneumothorax . No concerning pulmonary nodule is visualized. Overlying emphysema. There is patchy infiltrate in the right upper. Lung bases are clear there is no consolidation. PLEURAE: There is no pleural thickening or pleural effusion. MEDIASTINUM: There is good visualization of the great vessels of the middle mediastinum. No evidence of mediastin al or hilar adenopathy/mass. Coronary artery calcifications are present. The heart size is mildly pro minent with no pericardial effusion. MUSCULOSKELETAL: Within normal limits for patient age. MISCELLANEOUS: The visualized upper abdominal organs demonstrate no acute abnormality. There is moderate hepatic paul atosis. CONCLUSION: 1. No evidence of pulmonary embolism. 2. Patchy infiltrate in the right upper lobe most characteristic of pneumonia. 3. Cardiomegaly. 4. Underlying emphysema. 5. Moderate hepatic steatosis. Jl Avila MD on September 14, 2017 at 19:14 Board Certified Radiologist. This report was verified electronically.
[2017-09-14] MEDS: PRAVASTATIN SOD 40 MG TAB PO SCH ×2 (22:06)
[2017-09-14] MEDS: CIPROFLOXACIN 500 MG TAB PO SCH ×2 (22:06)
--- NOTE | 2017-09-14 23:12 | MB ---
cc: Steve JAVIER M.D. DATE OF CONSULTATION: 09/14/2017 REASON FOR CONSULTATION: HISTORY Mr. Whitmore is a 61 year-old white male who has not seen a physician in probably 30 years, who came to the hospital because he was getting more and more short of breath. He had asthma as a child and was used to using albuterol and still does that when he can find friends who use the medication and share theirs with him. He has had no medical attention for this for years. He smoked two packs per day his entire adult life and is down to one pack per day now. He came to the hospital because he was just much more short of breath after the last week or two, noticeably different. He had some intermittent chest discomfort, was seen by cardiology because of the concern for underlying coronary disease but he has refused any further workup on the heart. He does not have a particularly significant cough. He has no purulent sputum or hemoptysis. He has not been running a fever. 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 He uses no prescription medication. PAST MEDICAL HISTORY He has had left ankle fracture which was complicated, had to have surgery. He had a patellar repair in the left knee. That leg swells intermittently. He had a T&A as a child. Last hospitalization was for the ankle fracture with surgery. 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 He has been in this area for about 20 years, current address at about 7 years. Originally from the [facility]. FAMILY HISTORY Father unknown. Mother of cancer. No brothers or sisters. No biologic children. He is and several times, currently lives alone. No unusual animal exposures. REVIEW OF SYSTEMS No presyncopal symptoms. He has had intermittent swelling in the left leg not the right, no recent change in bowel habits. No nausea or vomiting. PHYSICAL EXAMINATION Obese white male. VITAL SIGNS: 97 degrees, 140/70, respirations 18, pulse is 96. O2 93% on three liters. HEENT: Sclerae anicteric, very poor dentition. Moist mucous membranes. Neck: Neck veins are flat. Lungs: Diffuse wheezing in both lungs. Heart: Regular heart rhythm. No harsh murmur. Abdomen: Very obese, soft, nontender. Extremities: He does have 1+ edema in the left pretibial region. No obvious calf tenderness. The right leg, no edema. X-RAYS: Chest x-ray, increased interstitial and hilar vascular changes. LABORATORY DATA: White count is 8500, hemoglobin 15.9, coagulation normal. BUN 25, creatinine 1.2. BNP 181. DISCUSSION: Mr. Whitmore presents with COPD, asthma as a child, longstanding smoking history and abnormal chest x-ray, and a rather sudden change recently in his breathing which can certainly be due to COPD, although I am concerned because of the intermittent swelling in that left leg that he may have thromboembolic disease. He is also obese. I have suggested proceeding with a CTA, get further information about his lungs as well as evaluating for thromboembolic disease. He will need a spirometry and arterial blood gas on room air. I have explained to him that the most significant thing he can do to improve his situation going forward is stop smoking. We talked about how to do that with nicotine replacement therapy. He has refused cardiac evaluation. He says he cannot lie flat for anything at this point which may be true, may be in the future he will reconsider that particularly if he is not getting better. We will continue his aerosolized bronchodilators and IV corticosteroids. Will also begin him on oral ciprofloxacin for this exacerbation as there may very well be an underlying bacterial etiology despite the fact he does not have pneumonia. Further diagnostic and/or therapeutic intervention will depend on his ongoing clinical response and the results of these studies. R. MD DARIO Albert/SHERWIN /5:43 PM /10:59 PM
--- NOTE | 2017-09-14 23:12 | MB ---
cc: Steve JAVIER M.D. DATE OF CONSULTATION: 09/14/2017 REASON FOR CONSULTATION: HISTORY Mr. Whitmore is a 61 year-old white male who has not seen a physician in probably 30 years, who came to the hospital because he was getting more and more short of breath. He had asthma as a child and was used to using albuterol and still does that when he can find friends who use the medication and share theirs with him. He has had no medical attention for this for years. He smoked two packs per day his entire adult life and is down to one pack per day now. He came to the hospital because he was just much more short of breath after the last week or two, noticeably different. He had some intermittent chest discomfort, was seen by cardiology because of the concern for underlying coronary disease but he has refused any further workup on the heart. He does not have a particularly significant cough. He has no purulent sputum or hemoptysis. He has not been running a fever. 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 He uses no prescription medication. PAST MEDICAL HISTORY He has had left ankle fracture which was complicated, had to have surgery. He had a patellar repair in the left knee. That leg swells intermittently. He had a T&A as a child. Last hospitalization was for the ankle fracture with surgery. 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 He has been in this area for about 20 years, current address at about 7 years. Originally from the [facility]. FAMILY HISTORY Father unknown. Mother of cancer. No brothers or sisters. No biologic children. He is and several times, currently lives alone. No unusual animal exposures. REVIEW OF SYSTEMS No presyncopal symptoms. He has had intermittent swelling in the left leg not the right, no recent change in bowel habits. No nausea or vomiting. PHYSICAL EXAMINATION Obese white male. VITAL SIGNS: 97 degrees, 140/70, respirations 18, pulse is 96. O2 93% on three liters. HEENT: Sclerae anicteric, very poor dentition. Moist mucous membranes. Neck: Neck veins are flat. Lungs: Diffuse wheezing in both lungs. Heart: Regular heart rhythm. No harsh murmur. Abdomen: Very obese, soft, nontender. Extremities: He does have 1+ edema in the left pretibial region. No obvious calf tenderness. The right leg, no edema. X-RAYS: Chest x-ray, increased interstitial and hilar vascular changes. LABORATORY DATA: White count is 8500, hemoglobin 15.9, coagulation normal. BUN 25, creatinine 1.2. BNP 181. DISCUSSION: Mr. Whitmore presents with COPD, asthma as a child, longstanding smoking history and abnormal chest x-ray, and a rather sudden change recently in his breathing which can certainly be due to COPD, although I am concerned because of the intermittent swelling in that left leg that he may have thromboembolic disease. He is also obese. I have suggested proceeding with a CTA, get further information about his lungs as well as evaluating for thromboembolic disease. He will need a spirometry and arterial blood gas on room air. I have explained to him that the most significant thing he can do to improve his situation going forward is stop smoking. We talked about how to do that with nicotine replacement therapy. He has refused cardiac evaluation. He says he cannot lie flat for anything at this point which may be true, may be in the future he will reconsider that particularly if he is not getting better. We will continue his aerosolized bronchodilators and IV corticosteroids. Will also begin him on oral ciprofloxacin for this exacerbation as there may very well be an underlying bacterial etiology despite the fact he does not have pneumonia. Further diagnostic and/or therapeutic intervention will depend on his ongoing clinical response and the results of these studies. R. MD DARIO Albert/SHERWIN /5:43 PM /10:59 PM
--- NOTE | 2017-09-14 23:12 | MB ---
cc: Steve JAVIER M.D. DATE OF CONSULTATION: 09/14/2017 REASON FOR CONSULTATION: HISTORY Mr. Whitmore is a 61 year-old white male who has not seen a physician in probably 30 years, who came to the hospital because he was getting more and more short of breath. He had asthma as a child and was used to using albuterol and still does that when he can find friends who use the medication and share theirs with him. He has had no medical attention for this for years. He smoked two packs per day his entire adult life and is down to one pack per day now. He came to the hospital because he was just much more short of breath after the last week or two, noticeably different. He had some intermittent chest discomfort, was seen by cardiology because of the concern for underlying coronary disease but he has refused any further workup on the heart. He does not have a particularly significant cough. He has no purulent sputum or hemoptysis. He has not been running a fever. 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 He uses no prescription medication. PAST MEDICAL HISTORY He has had left ankle fracture which was complicated, had to have surgery. He had a patellar repair in the left knee. That leg swells intermittently. He had a T&A as a child. Last hospitalization was for the ankle fracture with surgery. 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 He has been in this area for about 20 years, current address at about 7 years. Originally from the [facility]. FAMILY HISTORY Father unknown. Mother of cancer. No brothers or sisters. No biologic children. He is and several times, currently lives alone. No unusual animal exposures. REVIEW OF SYSTEMS No presyncopal symptoms. He has had intermittent swelling in the left leg not the right, no recent change in bowel habits. No nausea or vomiting. PHYSICAL EXAMINATION Obese white male. VITAL SIGNS: 97 degrees, 140/70, respirations 18, pulse is 96. O2 93% on three liters. HEENT: Sclerae anicteric, very poor dentition. Moist mucous membranes. Neck: Neck veins are flat. Lungs: Diffuse wheezing in both lungs. Heart: Regular heart rhythm. No harsh murmur. Abdomen: Very obese, soft, nontender. Extremities: He does have 1+ edema in the left pretibial region. No obvious calf tenderness. The right leg, no edema. X-RAYS: Chest x-ray, increased interstitial and hilar vascular changes. LABORATORY DATA: White count is 8500, hemoglobin 15.9, coagulation normal. BUN 25, creatinine 1.2. BNP 181. DISCUSSION: Mr. Whitmore presents with COPD, asthma as a child, longstanding smoking history and abnormal chest x-ray, and a rather sudden change recently in his breathing which can certainly be due to COPD, although I am concerned because of the intermittent swelling in that left leg that he may have thromboembolic disease. He is also obese. I have suggested proceeding with a CTA, get further information about his lungs as well as evaluating for thromboembolic disease. He will need a spirometry and arterial blood gas on room air. I have explained to him that the most significant thing he can do to improve his situation going forward is stop smoking. We talked about how to do that with nicotine replacement therapy. He has refused cardiac evaluation. He says he cannot lie flat for anything at this point which may be true, may be in the future he will reconsider that particularly if he is not getting better. We will continue his aerosolized bronchodilators and IV corticosteroids. Will also begin him on oral ciprofloxacin for this exacerbation as there may very well be an underlying bacterial etiology despite the fact he does not have pneumonia. Further diagnostic and/or therapeutic intervention will depend on his ongoing clinical response and the results of these studies. R. MD DARIO Albert/SHERWIN /5:43 PM /10:59 PM
[2017-09-15] VITALS (8 sets, daily range): BP systolic 135–153; BP diastolic 73–86; PULSE 89–97; RESP 16–23; TEMP 97–98.1; O2SAT 91–97
[2017-09-15] MEDS: methylPREDNISolone SOD SUCC 40 MG/1 ML VIAL IV PUSH SCH ×6 (05:14→20:43)
[2017-09-15] MEDS: RESP: ALBUTEROL 2.5 MG/IPRATROPIUM 0.5 MG NEB (SCH) NEB ×8 (09:28→20:26)
[2017-09-15 10:08] LABS: BICARBONATE 27.6 MEQ/L (21.0-32.0); CALCIUM 8.6 MG/DL (8.5-10.1); CREATININE 1.03 MG/DL (0.60-1.30)
[2017-09-15] MEDS: SODIUM CHLORIDE 0.9% FLUSH 10 ML FLUSH IV FLUSH SCH ×4 (10:10→20:47)
[2017-09-15] MEDS: ENOXAPARIN SODIUM 100 MG/ML SYRINGE SQ SCH ×2 (10:10)
[2017-09-15] MEDS: CIPROFLOXACIN 500 MG TAB PO SCH ×4 (10:11→20:43)
[2017-09-15] MEDS: ASPIRIN EC 81 MG TABEC PO SCH ×2 (10:11)
[2017-09-15] MEDS: POTASSIUM CHLORIDE 20 MEQ CONTROLLED RELEASE TAB PO SCH ×2 (10:11)
--- NOTE | 2017-09-15 16:52 | HHI.PR ---
Subjective Remarks Patient reports that his breathing is much better then when he came to the hospital patient feels that his breathing is back to his baseline asking to go home by this weekend for financial reasons, "I am two weeks late on my rent." Objective Vitals Vital Signs Date Time Temp Pulse Resp B/P (MAP) Pulse Ox O2 Delivery O2 Flow Rate FiO2 09/15/17 11:38 98.1 92 20 144/76 (98) 92 09/15/17 08:00 97.6 97 18 135/75 (95) 91 09/15/17 04:00 97.7 89 16 145/86 (105) 95 09/15/17 00:00 97.5 92 16 152/80 (104) 94 09/14/17 20:00 Nasal Cannula 2.00 09/14/17 20:00 108 09/14/17 19:38 93 Nasal Cannula 3.00 09/14/17 19:30 97.2 95 20 140/79 (99) 09/14/17 17:00 143/78 (99) I/O 09/14/17 09/14/17 09/14/17 09/15/17 09/15/17 09/15/17 07:00 15:00 23:00 07:00 15:00 23:00 Intake Total 480 ml 480 ml 240 ml Output Total 300 ml 600 ml 1375 ml Balance 180 ml -120 ml -1135 ml Intake Oral 480 ml 480 ml 240 ml Output Urine Total 300 ml 600 ml 1375 ml # Bowel Movements 1 Result Diagram: 09/13/17 0330 09/15/17 0820 Other Results Laboratory Tests Test 09/12/17 22:00 09/13/17 03:30 09/14/17 06:15 09/15/17 08:20 Total Creatine Kinase 282 U/L 310 U/L Creatine Kinase MB 2.4 NG/ML 2.2 NG/ML Troponin I 0.03 NG/ML 0.03 NG/ML White Blood Count 8.5 TH/MM3 Red Blood Count 5.36 MIL/MM3 Hemoglobin 15.9 GM/DL Hematocrit 48.2 % Mean Corpuscular Volume 90.0 FL Mean Corpuscular Hemoglobin 29.7 PG Mean Corpuscular Hemoglobin Concent 33.0 % Red Cell Distribution Width 14.0 % Platelet Count 254 TH/MM3 Mean Platelet Volume 7.3 FL Neutrophils (%) (Auto) 89.1 % Lymphocytes (%) (Auto) 9.5 % Monocytes (%) (Auto) 0.9 % Eosinophils (%) (Auto) 0.0 % Basophils (%) (Auto) 0.5 % Neutrophils # (Auto) 7.6 TH/MM3 Lymphocytes # (Auto) 0.8 TH/MM3 Monocytes # (Auto) 0.1 TH/MM3 Eosinophils # (Auto) 0.0 TH/MM3 Basophils # (Auto) 0.0 TH/MM3 CBC Comment DIFF FINAL Differential Comment Blood Urea Nitrogen 25 MG/DL 31 MG/DL Creatinine 1.21 MG/DL 1.03 MG/DL Random Glucose 150 MG/DL 126 MG/DL Calcium Level 8.5 MG/DL 8.6 MG/DL Sodium Level 137 MEQ/L 139 MEQ/L Potassium Level 4.1 MEQ/L 4.4 MEQ/L Chloride Level 102 MEQ/L 102 MEQ/L Carbon Dioxide Level 27.6 MEQ/L 27.6 MEQ/L Anion Gap 7 MEQ/L 9 MEQ/L Estimat Glomerular Filtration Rate 61 ML/MIN 73 ML/MIN Creatine Kinase MB % 0.7 % Triglycerides Level 168 MG/DL Cholesterol Level 288 MG/DL LDL Cholesterol 190 MG/DL HDL Cholesterol 64.4 MG/DL Cholesterol/HDL Ratio 4.47 RATIO Test 09/15/17 09:27 Blood Gas Puncture Site RT RADIAL Blood Gas Patient Temperature 98.6 Blood Gas HCO3 31 mmol/L Blood Gas Base Excess 5.8 mmol/L Blood Gas Oxygen Saturation 84 % Arterial Blood pH 7.39 Arterial Blood Partial Pressure CO2 53 mmHg Arterial Blood Partial Pressure O2 53 mmHg Arterial Blood Oxygen Content 19.8 Vol % Arterial Blood Carboxyhemoglobin 1.2 % Arterial Blood Methemoglobin 0.7 % Blood Gas Hemoglobin 16.8 G/DL Blood Gas Inspired Oxygen 21 % Imaging Last Impressions CT Angiography 09/14/17 0000 Signed Impressions: Service Date/Time: Thursday, September 14, 2017 19:04 - CONCLUSION: 1. No evidence of pulmonary embolism. 2. Patchy infiltrate in the right upper lobe most characteristic of pneumonia. 3. Cardiomegaly. 4. Underlying emphysema. 5. Moderate hepatic steatosis. Jl Avila MD Chest X-Ray 09/12/17 1429 Signed Impressions: Service Date/Time: Tuesday, September 12, 2017 14:43 - CONCLUSION: Moderate congestive failure. Ovidio Lilly MD FACR Objective Remarks GENERAL: 61 year old male in no acute distress. HEENT: Extraocular movements intact. CARDIOVASCULAR: regular rate and rhythm RESPIRATORY: some exp wheeze throughout. no crackles that I could appreciate. Breathing is non-labored. GASTROINTESTINAL: Abdomen soft, non-tender, nondistended. Obese. EXTREMITIES: 1+ bilateral lower extremity edema. No calf tenderness. PSYCH: Alert and oriented x 3. A/P Problem List: (1) Dyspnea ICD Code: R06.00 - Dyspnea, unspecified (2) Elevated troponin ICD Code: R74.8 - Abnormal levels of other serum enzymes Status: Acute Assessment and Plan COPD exacerbation Dyspnea: Likely multifactorial. Suspect COPD and possible right sided heart failure from COPD. 2-D echocardiogram shows EF 55-60%. Cards stopped diuretics due to BUN/Cr ratio. Pt refusing ischemic work-up till wheezing on exam, continue duonebs, solu-medrol IV to 40 mg IV Q12H Ciprofloxacin per Pulmonology supplemental oxygen as needed. walk test ordered. Elevated troponin: trop 0.06-->0.03-->0.03. Cardiology evaluated the patient and offered him a cardiac cath vs nuclear stress testing and he declined both as he is not able to lie flat. on ASA. LDL 190, HDL64.4 and TG168. LFTs reviewed and wnl. Started on pravastatin 40mg qhs. HTN: elevated on admission, now better controlled. avoid bb due to copd DVT prophylaxis: Lovenox. Discharge Planning re-evaluate in AM. walk test ordered continue to taper steroids. Pt refusing ischemic work-up Discussed with patient, nurse and Savana Reno Sep 15, 2017 16:52
[2017-09-15] MEDS ORDERED: RESP: ALBUTEROL 2.5 MG/IPRATROPIUM 0.5 MG NEB (PRN) NEB ×2 (17:00)
[2017-09-15] MEDS: PRAVASTATIN SOD 40 MG TAB PO SCH ×2 (20:43)
[2017-09-16] VITALS (9 sets, daily range): BP systolic 132–151; BP diastolic 65–88; PULSE 76–88; RESP 16–20; TEMP 97.4–98.1; O2SAT 92–98
[2017-09-16] MEDS: RESP: ALBUTEROL 2.5 MG/IPRATROPIUM 0.5 MG NEB (SCH) NEB ×8 (08:05→21:24)
[2017-09-16] MEDS: SODIUM CHLORIDE 0.9% FLUSH 10 ML FLUSH IV FLUSH SCH ×4 (08:18→20:53)
[2017-09-16] MEDS: CIPROFLOXACIN 500 MG TAB PO SCH ×4 (08:18→20:51)
[2017-09-16] MEDS: POTASSIUM CHLORIDE 20 MEQ CONTROLLED RELEASE TAB PO SCH ×2 (08:18)
[2017-09-16] MEDS: ASPIRIN EC 81 MG TABEC PO SCH ×2 (08:18)
[2017-09-16] MEDS: methylPREDNISolone SOD SUCC 40 MG/1 ML VIAL IV PUSH SCH ×2 (08:19)
[2017-09-16] MEDS: ENOXAPARIN SODIUM 40 MG/0.4 ML SYRINGE SQ SCH ×2 (09:10)
--- NOTE | 2017-09-16 15:58 | HHI.PR ---
Subjective Remarks He is dessating without O2. Denies chest pain . He feels sob when he is without O2. No fever or chills. No n/v/d/c. Wants to go home. Objective Vitals Vital Signs Date Time Temp Pulse Resp B/P (MAP) Pulse Ox O2 Delivery O2 Flow Rate FiO2 09/16/17 12:30 Nasal Cannula 3.00 09/16/17 12:00 97.5 81 18 134/74 (94) 94 09/16/17 08:08 93 Nasal Cannula 3.00 09/16/17 08:00 97.9 84 18 132/88 (103) 97 09/16/17 04:00 Nasal Cannula 2.00 09/16/17 04:00 97.4 86 20 151/81 (104) 94 09/16/17 00:00 97.4 88 20 134/74 (94) 98 09/16/17 00:00 Nasal Cannula 2.00 09/15/17 20:45 93 Nasal Cannula 2.00 09/15/17 20:27 92 Nasal Cannula 3.00 09/15/17 20:00 92 09/15/17 20:00 97.4 89 23 153/74 (100) 94 09/15/17 18:08 93 09/15/17 16:43 92 Nasal Cannula 2.00 09/15/17 16:00 97.0 89 18 138/73 (94) 97 I/O 09/15/17 09/15/17 09/15/17 09/16/17 09/16/17 09/16/17 07:00 15:00 23:00 07:00 15:00 23:00 Intake Total 240 ml 960 ml 480 ml Output Total 1375 ml 1300 ml 600 ml Balance -1135 ml -340 ml -120 ml Intake Oral 240 ml 960 ml 480 ml Output Urine Total 1375 ml 1300 ml 600 ml # Bowel Movements 1 1 Result Diagram: 09/13/17 0330 09/15/17 [address] Angiography 09/14/17 0000 Signed Impressions: Service Date/Time: Thursday, September 14, 2017 19:04 - CONCLUSION: 1. No evidence of pulmonary embolism. 2. Patchy infiltrate in the right upper lobe most characteristic of pneumonia. 3. Cardiomegaly. 4. Underlying emphysema. 5. Moderate hepatic steatosis. Jl Avila MD Chest X-Ray 09/12/17 1429 Signed Impressions: Service Date/Time: Tuesday, September 12, 2017 14:43 - CONCLUSION: Moderate congestive failure. Ovidio Lilly MD FACR Objective Remarks GENERAL: 61 year old male in no acute distress. HEENT: Extraocular movements intact. CARDIOVASCULAR: regular rate and rhythm RESPIRATORY: some exp wheeze throughout. no crackles that I could appreciate. Breathing is non-labored. GASTROINTESTINAL: Abdomen soft, non-tender, nondistended. Obese. EXTREMITIES: 1+ bilateral lower extremity edema. No calf tenderness. PSYCH: Alert and oriented x 3. A/P Problem List: (1) Dyspnea ICD Code: R06.00 - Dyspnea, unspecified (2) Elevated troponin ICD Code: R74.8 - Abnormal levels of other serum enzymes Status: Acute Assessment and Plan COPD exacerbation Acute respiratory failure, patient requiring O2 at home, he also failed O2 walking test Dyspnea: Likely multifactorial. Suspect COPD and possible right sided heart failure from COPD. 2-D echocardiogram shows EF 55-60%. Cards stopped diuretics due to BUN/Cr ratio. Pt refusing ischemic work-up till wheezing on exam, continue duonebs, solu-medrol IV , change to PO steroid continue to taper as tolerated Ciprofloxacin per Pulmonology Supplemental oxygen as needed. O2 walking test reviewed patient needs O2 at home, he doesn't have insurance, case management is consulted for DC plan. Elevated troponin: trop 0.06-->0.03-->0.03. Cardiology evaluated the patient and offered him a cardiac cath vs nuclear stress testing and he declined both as he is not able to lie flat. on ASA. LDL 190, HDL64.4 and TG168. LFTs reviewed and wnl. Started on pravastatin 40mg qhs. HTN: elevated on admission, now better controlled. avoid bb due to copd DVT prophylaxis: Lovenox. Discharge Planning O2 walking test reviewed patient needs O2 at home, he doesn't have insurance, case management is consulted for DC plan. Continue to taper steroids. Pt refusing ischemic work-up Discussed with patient, nurse Humaira Cain MD Sep 16, 2017 15:57
[2017-09-16] MEDS ORDERED: OXYGENDME NAS.CANULA ×2 (16:05)
[2017-09-16] MEDS: predniSONE 20 MG TAB PO SCH ×4 (16:19→20:51)
[2017-09-16] MEDS: BUDESONIDE-FORMOTEROL 160/4.5 MCG INHALER INH SCH ×4 (17:11→20:51)
[2017-09-16] MEDS: PRAVASTATIN SOD 40 MG TAB PO SCH ×2 (20:51)
[2017-09-17] VITALS: BP 144/64; PULSE 86; RESP 18; TEMP 97.8; O2SAT 96
[2017-09-17 04:00] VITALS: BP 136/84; PULSE 84; RESP 19; TEMP 98.3; O2SAT 98
[2017-09-17] MEDS: RESP: ALBUTEROL 2.5 MG/IPRATROPIUM 0.5 MG NEB (SCH) NEB ×4 (07:45→12:58)
[2017-09-17 07:46] VITALS: O2SAT 94
[2017-09-17 08:00] VITALS: PULSE 78
[2017-09-17 09:02] VITALS: BP 135/75; PULSE 84; RESP 20; TEMP 97.6; O2SAT 93
--- NOTE | 2017-09-17 09:08 | HHI.PR ---
Subjective Remarks In bed feels much better says Symbicort helping. No n/v/d/c. Denies chest pain. With some sob with exertion. No fever or chills. Less cough. Objective Vitals Vital Signs Date Time Temp Pulse Resp B/P (MAP) Pulse Ox O2 Delivery O2 Flow Rate FiO2 09/17/17 09:02 97.6 84 20 135/75 (95) 93 09/17/17 07:46 94 Nasal Cannula 3.00 09/17/17 04:00 Nasal Cannula 2.00 09/17/17 04:00 98.3 84 19 136/84 (101) 98 09/17/17 00:00 Nasal Cannula 2.00 09/17/17 00:00 97.8 86 18 144/64 (90) 96 09/16/17 21:25 93 Nasal Cannula 3.00 09/16/17 20:55 Nasal Cannula 2.00 09/16/17 20:00 80 09/16/17 20:00 98.1 84 16 142/71 (94) 92 09/16/17 16:00 97.6 79 18 138/65 (89) 93 09/16/17 12:30 Nasal Cannula 3.00 09/16/17 12:00 97.5 81 18 134/74 (94) 94 I/O 09/16/17 09/16/17 09/16/17 09/17/17 09/17/17 09/17/17 07:00 15:00 23:00 07:00 15:00 23:00 Intake Total 480 ml 960 ml Output Total 600 ml 1500 ml Balance -120 ml -540 ml Intake Oral 480 ml 960 ml Output Urine Total 600 ml 1500 ml # Bowel Movements 1 0 Result Diagram: 09/13/17 0330 09/15/[address] Angiography 09/14/17 0000 Signed Impressions: Service Date/Time: Thursday, September 14, 2017 19:04 - CONCLUSION: 1. No evidence of pulmonary embolism. 2. Patchy infiltrate in the right upper lobe most characteristic of pneumonia. 3. Cardiomegaly. 4. Underlying emphysema. 5. Moderate hepatic steatosis. Jl Avila MD Chest X-Ray 09/12/17 1429 Signed Impressions: Service Date/Time: Tuesday, September 12, 2017 14:43 - CONCLUSION: Moderate congestive failure. Ovidio Lilly MD FACR Objective Remarks GENERAL: 61 year old male in no acute distress. HEENT: Extraocular movements intact. CARDIOVASCULAR: regular rate and rhythm RESPIRATORY: some exp wheeze throughout. no crackles that I could appreciate. Breathing is non-labored. GASTROINTESTINAL: Abdomen soft, non-tender, nondistended. Obese. EXTREMITIES: 1+ bilateral lower extremity edema. No calf tenderness. PSYCH: Alert and oriented x 3. A/P Problem List: (1) Dyspnea ICD Code: R06.00 - Dyspnea, unspecified (2) Elevated troponin ICD Code: R74.8 - Abnormal levels of other serum enzymes Status: Acute Assessment and Plan COPD exacerbation Acute respiratory failure, patient requiring O2 at home, he also failed O2 walking test Dyspnea: Likely multifactorial. Suspect COPD and possible right sided heart failure from COPD. 2-D echocardiogram shows EF 55-60%. Cards stopped diuretics due to BUN/Cr ratio. Pt refusing ischemic work-up till wheezing on exam, continue duonebs, solu-medrol IV , change to PO steroid continue to taper as tolerated Ciprofloxacin per Pulmonology Supplemental oxygen as needed. O2 walking test reviewed patient needs O2 at home, he doesn't have insurance, case management is consulted for DC plan. Elevated troponin: trop 0.06-->0.03-->0.03. Cardiology evaluated the patient and offered him a cardiac cath vs nuclear stress testing and he declined both as he is not able to lie flat. on ASA. LDL 190, HDL64.4 and TG168. LFTs reviewed and wnl. Started on pravastatin 40mg qhs. ECHO with normal EF HTN: elevated on admission, now better controlled. avoid bb due to copd DVT prophylaxis: Lovenox. Discharge Planning O2 walking test reviewed patient needs O2 at home, he doesn't have insurance, case management is consulted for DC plan. Continue to taper steroids. Pt refusing ischemic work-up Discussed with patient, nurse Humaira Cain MD Sep 17, 2017 09:08
--- NOTE | 2017-09-17 09:08 | HHI.DS ---
Discharge Summary Admission Date Sep 12, 2017 at 16:36 Discharge Date: Sep 17, 2017 Admitting Diagnosis new onset CHF, elevated troponin (1) Dyspnea ICD Code: R06.00 - Dyspnea, unspecified (2) Elevated troponin ICD Code: R74.8 - Abnormal levels of other serum enzymes Status: Acute Procedures NONE Brief History - From Admission The patient is a 61-year-old male who reports no known chronic medical problems , although he has not seen a physician in many years. He presented to the emergency department with worsening shortness of breath. This has really been going on for the last couple years, but worsened significantly over the last 1- 2 days. He describes weight gain over the past 8 months. He reports nocturia 3 every night. He had an episode of chest pain in the ER, which occurred with movement of his left arm. The pain is reproducible. Otherwise no chest pain. He states that his shortness of breath has improved somewhat since arriving in the ER. He has a history of chronic tobacco abuse and recently cut down from 2 packs per day to one pack per day. He also reports a history of childhood asthma. Denies other lung or cardiac problems. CBC/BMP: 09/13/17 0330 09/15/17 0820 Significant Findings Laboratory Tests Test 09/15/17 08:20 09/15/17 09:27 Blood Urea Nitrogen 31 MG/DL (7-18) Random Glucose 126 MG/DL (74-106) Estimat Glomerular Filtration Rate 73 ML/MIN (>89) Blood Gas HCO3 31 mmol/L (22-26) Blood Gas Base Excess 5.8 mmol/L (-2-2) Blood Gas Oxygen Saturation 84 % (90-100) Arterial Blood Partial Pressure CO2 53 mmHg (38-42) Arterial Blood Partial Pressure O2 53 mmHg (61-120) Blood Gas Hemoglobin 16.8 G/DL (12.0-16.0) Imaging Last Impressions CT Angiography 09/14/17 0000 Signed Impressions: Service Date/Time: Thursday, September 14, 2017 19:04 - CONCLUSION: 1. No evidence of pulmonary embolism. 2. Patchy infiltrate in the right upper lobe most characteristic of pneumonia. 3. Cardiomegaly. 4. Underlying emphysema. 5. Moderate hepatic steatosis. Jl Avila MD Chest X-Ray 09/12/17 1429 Signed Impressions: Service Date/Time: Tuesday, September 12, 2017 14:43 - CONCLUSION: Moderate congestive failure. Ovidio Lilly MD FACR PE at Discharge GENERAL: 61 year old male in no acute distress. HEENT: Extraocular movements intact. CARDIOVASCULAR: regular rate and rhythm RESPIRATORY: some exp wheeze throughout. no crackles that I could appreciate. Breathing is non-labored. GASTROINTESTINAL: Abdomen soft, non-tender, nondistended. Obese. EXTREMITIES: 1+ bilateral lower extremity edema. No calf tenderness. PSYCH: Alert and oriented x 3. Hospital Course COPD exacerbation Acute respiratory failure, patient requiring O2 at home, he also failed O2 walking test Dyspnea: Likely multifactorial. Suspect COPD and possible right sided heart failure from COPD. 2-D echocardiogram shows EF 55-60%. Cards stopped diuretics due to BUN/Cr ratio. Pt refusing ischemic work-up till wheezing on exam, continue duonebs, solu-medrol IV , change to PO steroid continue to taper as tolerated Ciprofloxacin per Pulmonology Supplemental oxygen as needed. O2 walking test reviewed patient needs O2 at home, he doesn't have insurance, case management is consulted for DC plan. pATIENT HOWEVER LEFT AMA. Elevated troponin: trop 0.06-->0.03-->0.03. Cardiology evaluated the patient and offered him a cardiac cath vs nuclear stress testing and he declined both as he is not able to lie flat. on ASA. LDL 190, HDL64.4 and TG168. LFTs reviewed and wnl. Started on pravastatin 40mg qhs. ECHO with normal EF HTN: elevated on admission, now better controlled. avoid bb due to copd DVT prophylaxis: Lovenox. Discharge Planning O2 walking test reviewed patient needs O2 at home, he doesn't have insurance, case management is consulted for DC plan. Continue to taper steroids. Pt refusing ischemic work-up Discussed with patient, nurse PATIENT LEFT AMA. PATIENT NEEDS O2 AT HOME. HE IS AWARE HOWEVER PATIENT SAYS HE WANTS TO GO HOME BECAUSE HE HAS ERRANDS Pt Condition on Discharge: Stable Discharge Disposition: Discharge Home (LEFT AMA) Discharge Time: > 30 minutes Discharge Instructions DIET: Follow Instructions for: Heart Healthy Diet, Diabetic Diet Activities you can perform: Regular-No Restrictions Follow up Referrals: Cardiology - 1 Week PCP Follow-up - 3-5 Days Pulmonology - 1 Week New Medications: Albuterol 18 GM Inh (Ventolin Hfa 18 GM Inh) 90 Mcg/Act Aer 2 PUFF INH Q4-6H PRN for SHORTNESS OF BREATH, #1 INHALER 0 Refills Ipratropium HFA 12.9 GM Inh (Atrovent HFA 12.9 GM Inh) 17 Mcg/Actuation Aer 2 PUFF INH Q6HR PRN for SHORTNESS OF BREATH, #1 INHALER 0 Refills Oxygen (O2) (Oxygen (O2)) Device LITER SHERWIN.CANULA CONTINUOUS for Prevent Hypoxemia, #2 Oxygen Concentrator Portable Gaseous 2 L/min via Nasal Canula Continuous For [address] (Adult Aspirin EC Low Strength) 81 Mg Tabec 81 MG PO DAILY for Blood Clot Prevention, #30 TAB Budesonide-Formoterol Inh (Symbicort Inh) 160-4.5 Mcg/Act Aero 2 PUFF INH Q12HR for Shortness of Breath for 30 Days, INHALER Ciprofloxacin (Cipro) 500 Mg Tab 500 MG PO Q12HR for infection for 7 Days, TAB Pravastatin (Pravachol) 40 Mg Tab 40 MG PO HS for Cholesterol Management, #30 TAB Humaira Cain MD Sep 17, 2017 09:08
[2017-09-17] MEDS ORDERED: CIPR-9 PO ×2 (09:11)
[2017-09-17] MEDS ORDERED: VENTAER INH ×2 (09:11)
[2017-09-17] MEDS ORDERED: PRAV40TA PO ×2 (09:11)
[2017-09-17] MEDS ORDERED: ASPI-99 PO ×2 (09:11)
[2017-09-17] MEDS ORDERED: SYMB160A INH ×2 (09:11)
[2017-09-17] MEDS: predniSONE 20 MG TAB PO SCH ×2 (09:47)
[2017-09-17] MEDS: ASPIRIN EC 81 MG TABEC PO SCH ×2 (09:47)
[2017-09-17] MEDS: POTASSIUM CHLORIDE 20 MEQ CONTROLLED RELEASE TAB PO SCH ×2 (09:48)
[2017-09-17] MEDS: CIPROFLOXACIN 500 MG TAB PO SCH ×2 (09:48)
[2017-09-17] MEDS: BUDESONIDE-FORMOTEROL 160/4.5 MCG INHALER INH SCH ×2 (09:48)
[2017-09-17] MEDS: SODIUM CHLORIDE 0.9% FLUSH 10 ML FLUSH IV FLUSH SCH ×2 (09:49)
[2017-09-17] MEDS: ENOXAPARIN SODIUM 40 MG/0.4 ML SYRINGE SQ SCH ×2 (09:50)
[2017-09-17] MEDS ORDERED: IPRA17I INH ×2 (10:09)
[2017-09-17 12:08] VITALS: BP 134/71; PULSE 82; RESP 18; TEMP 97.6; O2SAT 94
--- NOTE | 2017-09-19 11:05 | RSPPFT ---
DATE OF PROCEDURE: 09/15/17 COMMENTS: VOLUMES DYNAMIC: FVC moderately reduced; FEV1 severely reduced. FLOWS: FEV1% moderately reduced; FEF 25-75 severely reduced. FLOW VOLUME LOOP: Pattern of variable intrathoracic airways obstruction. IMPRESSION: Severe obstruction ventilatory defect with no significant improvement post-bronchodilator.
== END 2017-09-17 15:19 | disposition home or self-care (01) | DRG 291 ==
LOC: NEPD 14:05 → NEDA 16:36 → N04A 18:17
PROVIDERS: ADMIT Hospitalist; ATTEND Hospitalist
DX: I11.0 Hypertensive heart disease with heart failure (principal); J96.01 Acute respiratory failure with hypoxia; J44.1 Chronic obstructive pulmonary disease with (acute) exacerbation; I50.9 Heart failure, unspecified; Z99.81 Dependence on supplemental oxygen; K40.90 Unilateral inguinal hernia, without obstruction or gangrene, not specified as recurrent; Z79.82 Long term (current) use of aspirin; F17.210 Nicotine dependence, cigarettes, uncomplicated; R74.8 Abnormal levels of other serum enzymes
CPT/HCPCS: 36600; 71020; 71275; 80048; 80053; 80061; 82550; 82552; 82805; 83880; 84484; 85025; 85610; 85730; 93005; 93306; 94060; 94620; 94640; 94664; 96374; 96375; J1650; J1940; J2920; J2930; J7512; J7613; Q9967